=== PATIENT | female | born 1995 | race Two or more races ===

== ENCOUNTER 2017-12-26 19:27 | Emergency (ER) | payer OTHER ==
[~2017-12-26] VITALS: Ht 160 cm; Wt 55.3 kg
--- NOTE | 2017-12-26 19:43 | NUR ---
PT AMBULATED TO ER WITH C/O CHEST PAIN THAT FEELS LIKE A "SQUEEZING PRESSURE" THAT RADIATES TO HER LEFT SHOULDER THAT STARTED AT 0600 AND AGAIN AT 1600 TODAY. PT STATES PAIN IS PROVOKED WHEN SHE TAKES A DEEP BREATH AND STATES SHE FEELS A LITTLE NERVOUS. PT STATES SHE DOES NOT HAVE ANY CHEST PAIN AT THIS TIME. NO ACUTE DISTRESS NOTED. FRIEND AT BEDSIDE.
--- NOTE | 2017-12-26 20:32 | NUR ---
Patient discharged to home in stable conditon. Written and verbal after care instructions given. Patient verbalizes understanding of instructions. Pt ambulated out of ER in steady gait accompanied by friend. All belongings with pt. VSS. No acute distress noted.
[2017-12-26 20:34] VITALS: BP 122/78
== END 2017-12-26 20:34 | disposition home or self-care (01) ==
LOC: ER 19:28
DX: R07.89 Other chest pain (principal); F17.210 Nicotine dependence, cigarettes, uncomplicated
CPT/HCPCS: 71045; 93005; A4663